=== PATIENT | male | born 2000 | race Caucasian/White ===

== ENCOUNTER 2020-05-17 10:20 | Emergency (ER) | payer BC, OTHER ==
--- NOTE | 2020-05-17 10:56 | EDM.PDOC ---
ED HPI GENERAL MEDICAL PROBLEM - General Chief Complaint: Bite:Animal, Insect Stated Complaint: BITTEN MY STRAY CAT Time Seen by Provider: 05/17/20 10:45 Source of Information: Reports: Patient History Limitations: Reports: No Limitations - History of Present Illness INITIAL COMMENTS - FREE TEXT/NARRATIVE: c/o cat bite pt from [employer], working locally building [employer], he brought home a stray kitten and was bitten on his R index finger when feeding it, says blood was drawn his aunt and uncle live locally and took cat to vet who he says put the kitten down he does not now what vet, does not know if brain send for rabies testing RN notified local law enforcement as per hosp protocol pt is scheduled to work today no pain, no f/c/d, otherwise in good health kitten acting normally, walking normally, eating normally, playing normally, no excess salivation - Related Data Allergies Allergy/AdvReac Type Severity Reaction Status Date / Time Penicillins Allergy Hives Verified 05/17/20 10:46 Home Meds: Home Meds Clindamycin HCl 300 mg PO TID #9 capsule 05/17/20 [Rx] ED ROS GENERAL - Review of Systems Review Of Systems: See Below Constitutional: Reports: No Symptoms HEENT: Reports: No Symptoms Respiratory: Reports: No Symptoms Cardiovascular: Reports: No Symptoms Endocrine: Reports: No Symptoms GI/Abdominal: Reports: No Symptoms : Reports: No Symptoms Musculoskeletal: Reports: No Symptoms Skin: Reports: Wound Neurological: Reports: No Symptoms Psychiatric: Reports: No Symptoms Hematologic/Lymphatic: Reports: No Symptoms Immunologic: Reports: No Symptoms ED EXAM, ANIMAL BITE - Physical Exam Exam: See Below Exam Limited By: No Limitations General Appearance: Alert, WD/WN, No Apparent Distress Head: Atraumatic, Normocephalic Respiratory/Chest: No Respiratory Distress Cardiovascular: Regular Rate, Rhythm Neurological: Alert, Oriented, CN II-XII Intact, Normal Cognition, Normal Gait, No Motor/Sensory Deficits Psychiatric: Normal Affect, Normal Mood Skin Exam: Normal Color, Warm/Dry, Other (R index finger with 1 cm closed lac on fingerpad, vertical, soft, NT, no red/warm/edema, edges apposed) Course - Vital Signs Last Recorded V/S: Last Vital Signs Temp 36.9 C 05/17/20 10:40 Pulse 85 05/17/20 10:40 Resp 17 05/17/20 10:40 BP 130/61 05/17/20 10:40 Pulse Ox 100 05/17/20 10:40 - Re-Assessments/Exams Free Text/Narrative Re-Assessment/Exam: 05/17/20 10:57 no clinical evidence of infection has unknown allergy to PCN Departure - Departure Time of Disposition: 10:57 Disposition: Home, Self-Care 01 Condition: Good Clinical Impression: Cat bite of index finger Qualifiers: Encounter type: initial encounter Qualified Code(s): S61.258A - Open bite of other finger without damage to nail, initial encounter; W55.01XA - Bitten by cat, initial encounter - Discharge Information *PRESCRIPTION DRUG MONITORING PROGRAM REVIEWED*: Not Applicable *COPY OF PRESCRIPTION DRUG MONITORING REPORT IN PATIENT SHANIKA: Not Applicable Prescriptions: Clindamycin HCl 300 mg PO TID #9 capsule Instructions: Animal Bite, Adult, [id number] Referrals: PCP,None [Primary Care Provider] - Forms: ED Department Discharge, ED Return to Work/School Form Additional Instructions: To prevent infection, take clindamycin 300 mg 1 capsule 3 times a day for 3 days. Take 3 doses today. May return to work. See a physician the same day for any increase in redness, swelling, pain, warmth, fever or drainage. Check with the vet to determine if the brain has been sent to the state lab to test it for rabies. If the kitten is positive for rabies, you will need to get the 5-shot series of rabies vaccine. Call back to Emergency Department (or see your physician) for any questions. Sepsis Event Note (ED) - Evaluation Sepsis Screening Result: No Definite Risk - Focused Exam Vital Signs: Vital Signs Temp Pulse Resp BP Pulse Ox 05/17/20 10:40 36.9 C 85 17 130/61 100
== END 2020-05-17 11:15 | disposition home or self-care (01) ==
LOC: FB.ED 10:20
DX: S61.250A Open bite of right index finger without damage to nail, initial encounter (principal); Z88.0 Allergy status to penicillin; W55.01XA Bitten by cat, initial encounter; Y92.009 Unspecified place in unspecified non-institutional (private) residence as the place of occurrence of the external cause
CPT/HCPCS: 99283